=== PATIENT | male | born 1960 | race African-American/Black ===

== ENCOUNTER 2017-01-08 08:45 | Emergency (ER) | payer SELFPAY ==
[~2017-01-08] VITALS: Ht 182.9 cm; Wt 99.8 kg
[~2017-01-08 08:45] MED LIST: NKM; ZITHROMAX250 MG ORAL; ZOFRAN4 MG ORAL
[2017-01-08 08:51] VITALS: BP 129/84
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
[2017-01-08] MEDS ORDERED: PREDNISONE20 MG ORAL (09:15)
[2017-01-08] MEDS ORDERED: PEPCID40 MG PO (09:15)
[2017-01-08 09:40] VITALS: BP 129/84
== END 2017-01-08 09:30 | disposition home or self-care (01) ==
LOC: EMR 09:12
DX: L25.9 Unspecified contact dermatitis, unspecified cause (principal)
CPT/HCPCS: 99282

== ENCOUNTER 2018-10-11 08:34 | Emergency (ER) | payer MEDICAID ==
[~2018-10-11] VITALS: Ht 182.9 cm; Wt 99.8 kg
[~2018-10-11 08:34] MED LIST changes: +PEPCID40 MG PO; +PREDNISONE20 MG ORAL
--- NOTE | 2018-10-11 08:36 | NUR ---
ED Nurse Note: Pt went to the bathroom.
[2018-10-11 08:47] VITALS: BP 175/90
--- NOTE | 2018-10-11 08:48 | NUR ---
ED Nurse Note: Pt walked in due to Nausea, multiple epsiodes of vomiting and diarrhea since last night. Denies blood in his stool. AAO x4, ambulatory with non labored breathing. Skin is warm and dry.
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
[2018-10-11 09:22] LABS: APPEARANCE,URINE CLOUDY; BILIRUBIN, URINE NEGATIVE (NEGATIVE); COLOR,URINE BROWN; GLUCOSE, URINE (UA) 2+ (NEGATIVE); KETONES,URINE 4+ (NEGATIVE); LEUKOCYTE ESTERASE ,URINE 2+ (NEGATIVE); NITRITE,URINE NEGATIVE (NEGATIVE); PH,URINE 5 (4.5-8.0); PROTEIN,URINE 3+ (NEGATIVE); UROBILINOGEN,URINE NORMAL MG/DL (0.0-1.0)
[2018-10-11 09:23] LABS: HEMATOCRIT 44.5 % (42.0-52.0); HEMOGLOBIN 14.3 G/DL (14.2-18.0); MEAN CORPUSCULAR VOLUME 90 FL (80-99); PLATELET COUNT 242 K/UL (150-450); RED BLOOD COUNT 4.96 M/UL (4.70-6.10); RED CELL DISTRIBUTION WIDTH 12.3 % (11.6-14.8); WHITE BLOOD COUNT 7.3 K/UL (4.8-10.8)
--- NOTE | 2018-10-11 09:30 | NUR ---
ED Nurse Note: Pt reports feeling better and is not nauseated at this time.
[2018-10-11 09:33] LABS: ANION GAP 14 mmol/L (5-15); BLOOD UREA NITROGEN 11 mg/dL (7-18); CALCIUM 9.9 MG/DL (8.5-10.1); CARBON DIOXIDE 27 MMOL/L (21-32); CHLORIDE 99 MMOL/L (98-107); CREATININE 1.2 MG/DL (0.55-1.30); POTASSIUM 3.6 MMOL/L (3.5-5.1); SODIUM 140 MMOL/L (136-145)
[2018-10-11 09:38] LABS: ALANINE AMINOTRANSFERASE 56 U/L (12-78); ALBUMIN 4.1 G/DL (3.4-5.0); ALKALINE PHOSPHATASE 79 U/L (46-116); ASPARTATE AMINO TRANSFERASE 51 U/L (15-37); BILIRUBIN,TOTAL 0.9 MG/DL (0.2-1.0)
[2018-10-11 10:29] VITALS: BP 154/89
[2018-10-11] MEDS ORDERED: ONDANSETRON ODT4 MG BC (10:31)
[2018-10-11 10:47] VITALS: BP 159/90
--- NOTE | 2018-10-11 10:47 | NUR ---
ER DISCHARGE NOTE: Patient is cleared to be discharged per ERMD, pt is aox4, on room air, with stable vital signs. pt was given dc and prescription instructions, pt was able to verbalize understanding, pt id band and iv site removed without complications. pt is able to ambulate with steady gait. pt took all belongings.
== END 2018-10-11 10:47 | disposition home or self-care (01) ==
LOC: EMR 08:59
DX: R11.2 Nausea with vomiting, unspecified (principal); R19.7 Diarrhea, unspecified; Z72.0 Tobacco use
CPT/HCPCS: 36415; 80053; 81003; 83690; 85007; 85025; 96361; 96374; 99284; J2405

== ENCOUNTER 2019-04-23 17:11 | Emergency (ER) | payer MEDICAID ==
[~2019-04-23] VITALS: Ht 182.9 cm; Wt 95.3 kg
[~2019-04-23 17:11] MED LIST changes: +ONDANSETRON ODT4 MG BC
[2019-04-23] MEDS ORDERED: Omnipaque-300 100ml vial INJ PRN (17:45)
--- NOTE | 2019-04-23 17:50 | NUR ---
ED Nurse Note: Patient walked in to ER c/o severe nausea, lower abdominal pain since this mornig. Patient presented anxious, diaphoretic, AAO x4, VSS at this time, skin is warm to touch.
[2019-04-23 17:51] VITALS: BP 140/85
[2019-04-23 18:39] LABS: APPEARANCE,URINE CLEAR; BILIRUBIN, URINE NEGATIVE (NEGATIVE); GLUCOSE, URINE (UA) NEGATIVE (NEGATIVE); KETONES,URINE 3+ (NEGATIVE); LEUKOCYTE ESTERASE ,URINE 1+ (NEGATIVE); NITRITE,URINE NEGATIVE (NEGATIVE); PH,URINE 5 (4.5-8.0); PROTEIN,URINE 1+ (NEGATIVE); UROBILINOGEN,URINE NORMAL MG/DL (0.0-1.0)
[2019-04-23 18:41] LABS: COLOR,URINE YELLOW
[2019-04-23 18:42] LABS: BASOPHILS % (AUTO) 1.1 % (0.0-2.0); EOSINOPHILS % (AUTO) 0.3 % (0.0-3.0); HEMATOCRIT 48.2 % (42.0-52.0); HEMOGLOBIN 15.2 G/DL (14.2-18.0); LYMPHOCYTES % (AUTO) 14.4 % (20.0-45.0); MEAN CORPUSCULAR VOLUME 89 FL (80-99); MONOCYTES % (AUTO) 3.5 % (1.0-10.0); NEUTROPHILS % (AUTO) 80.7 % (45.0-75.0); PLATELET COUNT 307 K/UL (150-450); RED CELL DISTRIBUTION WIDTH 12.9 % (11.6-14.8); WHITE BLOOD COUNT 7.2 K/UL (4.8-10.8)
[2019-04-23 18:43] LABS: ANION GAP 17 mmol/L (5-15); BLOOD UREA NITROGEN 14 mg/dL (7-18); CALCIUM 10.3 MG/DL (8.5-10.1); CARBON DIOXIDE 23 MMOL/L (21-32); CHLORIDE 100 MMOL/L (98-107); CREATININE 1.2 MG/DL (0.55-1.30); SODIUM 140 MMOL/L (136-145)
[2019-04-23 18:47] LABS: ALANINE AMINOTRANSFERASE 28 U/L (12-78); ALBUMIN 4.1 G/DL (3.4-5.0); ALBUMIN/GLOBULIN RATIO 0.9 (1.0-2.7); ALKALINE PHOSPHATASE 86 U/L (46-116); ASPARTATE AMINO TRANSFERASE 27 U/L (15-37); BILIRUBIN,TOTAL 0.7 MG/DL (0.2-1.0)
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
[2019-04-23] MEDS ORDERED: Capsaicin 0.075% Cream TOPIC ONE (19:30)
--- NOTE | 2019-04-23 19:43 | NUR ---
HAND-OFF: Report given to Tian Dave RN.
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
[2019-04-23 20:00] VITALS: BP 126/79
[2019-04-23 21:15] VITALS: BP 140/85
== END 2019-04-23 21:15 | disposition home or self-care (01) ==
LOC: EMR 18:10
DX: R11.2 Nausea with vomiting, unspecified (principal); M54.5 Low back pain; F12.90 Cannabis use, unspecified, uncomplicated; Z90.49 Acquired absence of other specified parts of digestive tract
CPT/HCPCS: 36415; 74177; 80053; 80307; 81003; 83690; 85025; 96361; 96374; J2405; J7030; Q9967; Z7502; 99284

== ENCOUNTER 2020-03-06 07:52 | Emergency (ER) | payer MEDICAID ==
[~2020-03-06] VITALS: Ht 182.9 cm; Wt 95.3 kg
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
[2020-03-06 08:25] VITALS: BP 120/80
--- NOTE | 2020-03-06 08:25 | NUR ---
came to er complaints of low back pain radiates to buttocks denies any injury also states he had problem with hemorroids
[2020-03-06] MEDS ORDERED: HYDROCODON-ACE1 EA15 ORAL (08:38)
[2020-03-06] MEDS ORDERED: AUGMENTIN 875-1 EAC1 ORAL (08:38)
[2020-03-06 11:01] VITALS: BP 120/80
--- NOTE | 2020-03-06 11:02 | NUR ---
discharged home with instruction and rx follow up with pmd
== END 2020-03-06 11:03 | disposition home or self-care (01) ==
LOC: EMR 08:09
DX: L05.91 Pilonidal cyst without abscess (principal); Z98.890 Other specified postprocedural states
CPT/HCPCS: 99282